=== PATIENT | male | born 1930 | race Caucasian/White ===

== ENCOUNTER 2018-11-15 07:12 | Inpatient (IN) | payer MEDICARE, OTHER ==
[2018-11-15] MEDS: ALBUTEROL 0.083% (NEB) 2.5 MG/3 ML AMP HHN (07:41)
[2018-11-15 07:51] LABS: ADD MAN DIFF? NO
[2018-11-15 07:55] LABS: BASOPHIL # 0.1 10^3/ul (0.0-0.1); BASOPHILS % 0.6 % (0.0-2.0); EOSINOPHILS % 0.3 % (0.0-7.0); HEMOGLOBIN 12.9 g/dl (14.0-18.0); LYMPHOCYTES # 1.1 10^3/ul (0.8-2.9); LYMPHOCYTES % 9.3 % (15.0-51.0); MEAN CORPUSCULAR HEMOGLOBIN 29.9 pg (29.0-33.0); MEAN CORPUSCULAR HGB CONC 32.3 g/dl (32.0-37.0); MEAN CORPUSCULAR VOLUME 92.6 fl (82.0-101.0); MEAN PLATELET VOLUME 11.2 fl (7.4-10.4); MONOCYTE # 0.6 10^3/ul (0.3-0.9); MONOCYTES % 5.2 % (0.0-11.0); NEUTROPHIL # 10.3 10^3/ul (1.6-7.5); NEUTROPHILS % 83.9 % (39.0-77.0); PLATELET COUNT 222 10^3/UL (140-415); RED BLOOD COUNT 4.32 10^6/ul (4.70-6.10); RED CELL DISTRIBUTION WIDTH 13.4 % (11.5-14.5)
[2018-11-15 07:55] LABS: WHITE BLOOD COUNT 12.3 10^3/ul (4.8-10.8)
[2018-11-15 08:14] LABS: ALANINE AMINOTRANSFERASE 50 IU/L (13-69); ALBUMIN 4.6 g/dl (3.3-4.9); ALBUMIN/GLOBULIN RATIO 1.24; ALKALINE PHOSPHATASE 77 IU/L (42-121); ANION GAP 18 (5-13); ASPARTATE AMINO TRANSFERASE 62 IU/L (15-46); BILIRUBIN,INDIRECT 0.3 mg/dl (0-1.1); BILIRUBIN,TOTAL 0.3 mg/dl (0.2-1.3); BLOOD UREA NITROGEN 47 mg/dl (7-20); CALCIUM 9.5 mg/dl (8.4-10.2); CARBON DIOXIDE 23 mmol/L (21-31); CHLORIDE 102 mmol/L (97-110); CREATININE 2.11 mg/dl (0.61-1.24); GLUCOSE 191 mg/dl (70-220); POTASSIUM 4.6 mmol/L (3.5-5.1); SODIUM 143 mmol/L (135-144); TOTAL PROTEIN 8.3 g/dl (6.1-8.1)
[2018-11-15 08:22] LABS: B-TYPE NATRIURETIC PEPTIDE 6800 PG/ML (0-450)
[2018-11-15 08:28] LABS: LACTIC ACID 1.8 mmol/L (0.5-2.0)
[2018-11-15 09:03] LABS: TROPONIN-I 0.024 ng/ml (0.000-0.120)
[2018-11-15] MEDS ORDERED: ONDANSETRON 4 MG INJ IV (09:30)
[2018-11-15] MEDS ORDERED: ACETAMINOPHEN 325 MG TAB PO (09:30)
[2018-11-15] MEDS ORDERED: NACL 0.9% 3 ML SYG IV (09:30)
[2018-11-15] MEDS: FUROSEMIDE 20 MG INJ IV ×2 (09:39→13:10)
[2018-11-15] MEDS ORDERED: DEXTROSE 50% 50 ML SYRINGE IV ×2 (11:00)
[2018-11-15] MEDS ORDERED: GLUCOSE GEL 15 GRAM TUBE PO ×2 (11:00)
[2018-11-15] MEDS ORDERED: GLUCAGON 1 MG INJ IM (11:00)
[2018-11-15] MEDS ORDERED: GLUCOSE GEL 15 GRAM TUBE BUCCAL (11:00)
[2018-11-15] MEDS: INSULIN GLARGINE [LANTus] (100 UNITS/ML) SYG SC (11:59)
[2018-11-15] MEDS: INSULIN ASPART [NOVOLOG] 3 ML PEN SC ×3 (12:00→21:59)
[2018-11-15] MEDS: LOSARTAN 50 MG TAB PO (12:04)
[2018-11-15 14:00] LABS: LACTIC ACID 2.6 mmol/L (0.5-2.0)
[2018-11-15] MEDS: CEFTRIAXONE 1 GM/50 ML (PMX) 50 ML IVPB (14:15)
[2018-11-15 14:36] LABS: ADD UMIC YES; UR ASCORBIC ACID NEGATIVE (NEGATIVE); UR BACTERIA FEW /HPF (NONE SEEN); UR BILIRUBIN (Dip) NEGATIVE (NEGATIVE); UR BLOOD (Dip) 1+ mg/dL (NEGATIVE); UR CLARITY CLEAR (CLEAR); UR COLOR STRAW (YELLOW); UR GLUCOSE (Dip) NEGATIVE (NEGATIVE); UR KETONES (Dip) NEGATIVE (NEGATIVE); UR LEUKOCYTE ESTERASE (Dip) NEGATIVE Leu/ul (NEGATIVE); UR NITRITE (Dip) NEGATIVE (NEGATIVE); UR RBC 2 /HPF (0-5); UR SPECIFIC GRAVITY (Dip) 1.008 (1.003-1.030); UR TOTAL PROTEIN (Dip) 1+ mg/dl (NEGATIVE); UR UROBILINOGEN (Dip) NEGATIVE (NEGATIVE); UR WBC 0 /HPF (0-5)
[2018-11-15 14:53] LABS: SODIUM,URINE RANDOM 110 mmol/L (30-90)
[2018-11-15 14:53] LABS: CREATININE,URINE RANDOM 26.65 mg/dl (20-370)
[2018-11-15] MEDS: AZITHROMYCIN 500 MG TAB PO (15:10)
[2018-11-15] MEDS: FUROSEMIDE 40 MG INJ IV (17:15)
[2018-11-15] MEDS ORDERED: NON-FORMULARY/PATIENT OWN MED (Simvastatin* (Zocor*) 10 MG) PO (21:00)
[2018-11-15] MEDS: ATORVASTATIN 10 MG TAB PO (21:51)
[2018-11-15] MEDS: LATANOPROST 0.005% 2.5 ML OPH BOTH EYES (22:24)
[2018-11-16] MEDS: ACCU-CHEK XX (01:39)
[2018-11-16] MEDS: FUROSEMIDE 40 MG INJ IV (06:13)
[2018-11-16 07:16] LABS: ADD MAN DIFF? NO
[2018-11-16 07:24] LABS: WHITE BLOOD COUNT 12.2 10^3/ul (4.8-10.8)
[2018-11-16 07:24] LABS: BASOPHIL # 0.1 10^3/ul (0.0-0.1); BASOPHILS % 0.5 % (0.0-2.0); EOSINOPHILS # 0.1 10^3/ul (0.0-0.5); EOSINOPHILS % 0.7 % (0.0-7.0); HEMOGLOBIN 12.7 g/dl (14.0-18.0); LYMPHOCYTES # 2.1 10^3/ul (0.8-2.9); MEAN CORPUSCULAR HEMOGLOBIN 29.5 pg (29.0-33.0); MEAN CORPUSCULAR HGB CONC 32.6 g/dl (32.0-37.0); MEAN CORPUSCULAR VOLUME 90.5 fl (82.0-101.0); MEAN PLATELET VOLUME 11.2 fl (7.4-10.4); MONOCYTE # 1.1 10^3/ul (0.3-0.9); MONOCYTES % 8.6 % (0.0-11.0); NEUTROPHIL # 8.8 10^3/ul (1.6-7.5); NEUTROPHILS % 72.5 % (39.0-77.0); PLATELET COUNT 221 10^3/UL (140-415); RED BLOOD COUNT 4.31 10^6/ul (4.70-6.10); RED CELL DISTRIBUTION WIDTH 13.6 % (11.5-14.5)
[2018-11-16 07:31] LABS: HEMOGLOBIN A1C 7.1 % (0-5.9)
[2018-11-16 07:43] LABS: ALANINE AMINOTRANSFERASE 46 IU/L (13-69); ALBUMIN 4.4 g/dl (3.3-4.9); ALBUMIN/GLOBULIN RATIO 1.22; ALKALINE PHOSPHATASE 64 IU/L (42-121); ANION GAP 15 (5-13); ASPARTATE AMINO TRANSFERASE 37 IU/L (15-46); BILIRUBIN,INDIRECT 0.5 mg/dl (0-1.1); BILIRUBIN,TOTAL 0.5 mg/dl (0.2-1.3); BLOOD UREA NITROGEN 47 mg/dl (7-20); CALCIUM 9.8 mg/dl (8.4-10.2); CARBON DIOXIDE 30 mmol/L (21-31); CHLORIDE 99 mmol/L (97-110); CHOL/HDL RATIO 4.7 RATIO; CHOLESTEROL 119 mg/dl (100-200); CREATININE 1.77 mg/dl (0.61-1.24); GLUCOSE 150 mg/dl (70-220); HDL CHOLESTEROL 25 mg/dl (31-75); LDL CHOLESTEROL,CALCULATED 64 mg/dl; PHOSPHORUS 3.6 mg/dl (2.5-4.9); POTASSIUM 3.8 mmol/L (3.5-5.1); SODIUM 144 mmol/L (135-144); TRIGLYCERIDES 150 mg/dl (0-149)
[2018-11-16] MEDS: INSULIN ASPART [NOVOLOG] 3 ML PEN SC ×4 (07:47→21:00)
[2018-11-16] MEDS ORDERED: NON-FORMULARY/PATIENT OWN MED (Omega-3/Dha/Epa/Fish Oil (Fish Oil 1,000 Mg Softgel) 1 CAP) PO (09:00)
[2018-11-16] MEDS ORDERED: NON-FORMULARY/PATIENT OWN MED (Sitagliptin* (Januvia*) 100 MG) PO (09:00)
[2018-11-16] MEDS: FINASTERIDE 5 MG TAB PO (09:14)
[2018-11-16] MEDS: FISH OIL 1,000 MG CAP PO (09:14)
[2018-11-16] MEDS: METOPROLOL (XL) 50 MG TAB PO (09:16)
[2018-11-16] MEDS: LINAGLIPTIN 5 MG TABLET PO (09:16)
[2018-11-16] MEDS: LOSARTAN 50 MG TAB PO (09:17)
[2018-11-16] MEDS: AZITHROMYCIN 500 MG TAB PO (09:46)
[2018-11-16] MEDS: MULTIVITAMINS/MINERALS TAB PO (09:46)
[2018-11-16] MEDS: DIPYRIDAMOLE/ASPIRIN (SR) CAP PO (09:46)
[2018-11-16] MEDS: GUAIFENESIN/DM 5ML CUP PO ×2 (09:48→19:02)
[2018-11-16] MEDS: INSULIN GLARGINE [LANTus] (100 UNITS/ML) SYG SC ×3 (09:54→19:09)
[2018-11-16 14:09] LABS: CREATININE, RANDOM URINE 29 mg/dL (20-320); MICROALBUMIN 18.3 mg/dL; MICROALBUMIN/CREATININE RATIO 631 (<30)
[2018-11-16] MEDS: CEFTRIAXONE 1 GM/50 ML (PMX) 50 ML IVPB (16:18)
[2018-11-16] MEDS: LATANOPROST 0.005% 2.5 ML OPH BOTH EYES (21:26)
[2018-11-16] MEDS: ATORVASTATIN 10 MG TAB PO (21:26)
[2018-11-17] MEDS: ACCU-CHEK XX (02:00)
[2018-11-17] MEDS: INSULIN ASPART [NOVOLOG] 3 ML PEN SC ×4 (07:55→21:05)
[2018-11-17] MEDS: MULTIVITAMINS/MINERALS TAB PO (08:23)
[2018-11-17] MEDS: AZITHROMYCIN 500 MG TAB PO (08:23)
[2018-11-17] MEDS: FISH OIL 1,000 MG CAP PO (08:23)
[2018-11-17] MEDS: LINAGLIPTIN 5 MG TABLET PO (08:24)
[2018-11-17] MEDS: METOPROLOL (XL) 50 MG TAB PO (08:24)
[2018-11-17] MEDS: FINASTERIDE 5 MG TAB PO (08:24)
[2018-11-17] MEDS: LOSARTAN 50 MG TAB PO (08:24)
[2018-11-17] MEDS: DIPYRIDAMOLE/ASPIRIN (SR) CAP PO (08:25)
[2018-11-17 08:59] LABS: ADD MAN DIFF? NO
[2018-11-17 09:01] LABS: WHITE BLOOD COUNT 12.6 10^3/ul (4.8-10.8)
[2018-11-17 09:01] LABS: BASOPHIL # 0.1 10^3/ul (0.0-0.1); BASOPHILS % 0.6 % (0.0-2.0); EOSINOPHILS # 0.2 10^3/ul (0.0-0.5); EOSINOPHILS % 1.5 % (0.0-7.0); HEMATOCRIT 39.5 % (42.0-52.0); HEMOGLOBIN 12.7 g/dl (14.0-18.0); LYMPHOCYTES # 2.6 10^3/ul (0.8-2.9); MEAN CORPUSCULAR HEMOGLOBIN 29.3 pg (29.0-33.0); MEAN CORPUSCULAR HGB CONC 32.2 g/dl (32.0-37.0); MEAN CORPUSCULAR VOLUME 91.2 fl (82.0-101.0); MEAN PLATELET VOLUME 10.9 fl (7.4-10.4); MONOCYTE # 1.1 10^3/ul (0.3-0.9); MONOCYTES % 8.7 % (0.0-11.0); NEUTROPHIL # 8.5 10^3/ul (1.6-7.5); NEUTROPHILS % 67.2 % (39.0-77.0); PLATELET COUNT 234 10^3/UL (140-415); RED BLOOD COUNT 4.33 10^6/ul (4.70-6.10); RED CELL DISTRIBUTION WIDTH 13.5 % (11.5-14.5)
[2018-11-17] MEDS: INSULIN GLARGINE [LANTus] (100 UNITS/ML) SYG SC (09:25)
[2018-11-17 09:35] LABS: ANION GAP 15 (5-13); BLOOD UREA NITROGEN 40 mg/dl (7-20); CALCIUM 9.7 mg/dl (8.4-10.2); CARBON DIOXIDE 29 mmol/L (21-31); CHLORIDE 99 mmol/L (97-110); CREATININE 1.63 mg/dl (0.61-1.24); GLUCOSE 111 mg/dl (70-220); PHOSPHORUS 3.9 mg/dl (2.5-4.9); POTASSIUM 3.4 mmol/L (3.5-5.1); SODIUM 143 mmol/L (135-144)
[2018-11-17] MEDS: CEFTRIAXONE 1 GM/50 ML (PMX) 50 ML IVPB (13:19)
[2018-11-17] MEDS: FUROSEMIDE 20 MG TAB PO (13:20)
[2018-11-17] MEDS: POTASSIUM CHLORIDE 20 MEQ POWDER FOR ORAL SOLN PO (13:27)
[2018-11-17] MEDS: ATORVASTATIN 10 MG TAB PO (20:16)
[2018-11-17] MEDS: GUAIFENESIN/DM 5ML CUP PO (20:16)
[2018-11-17] MEDS: LATANOPROST 0.005% 2.5 ML OPH BOTH EYES (21:15)
[2018-11-18] MEDS: ACCU-CHEK XX (02:00)
[2018-11-18 07:01] LABS: ANION GAP 12 (5-13); BLOOD UREA NITROGEN 39 mg/dl (7-20); CALCIUM 9.3 mg/dl (8.4-10.2); CARBON DIOXIDE 26 mmol/L (21-31); CHLORIDE 100 mmol/L (97-110); CREATININE 1.48 mg/dl (0.61-1.24); GLUCOSE 133 mg/dl (70-220); SODIUM 138 mmol/L (135-144)
[2018-11-18] MEDS: INSULIN ASPART [NOVOLOG] 3 ML PEN SC ×2 (07:55→11:50)
[2018-11-18] MEDS: INSULIN GLARGINE [LANTus] (100 UNITS/ML) SYG SC (08:14)
[2018-11-18] MEDS: MULTIVITAMINS/MINERALS TAB PO (08:21)
[2018-11-18] MEDS: FISH OIL 1,000 MG CAP PO (08:21)
[2018-11-18] MEDS: FINASTERIDE 5 MG TAB PO (08:21)
[2018-11-18] MEDS: LINAGLIPTIN 5 MG TABLET PO (08:22)
[2018-11-18] MEDS: AZITHROMYCIN 500 MG TAB PO (08:22)
[2018-11-18] MEDS: METOPROLOL (XL) 50 MG TAB PO (08:23)
[2018-11-18] MEDS: LOSARTAN 50 MG TAB PO (08:23)
[2018-11-18] MEDS: DIPYRIDAMOLE/ASPIRIN (SR) CAP PO (08:24)
[2018-11-18] MEDS: FUROSEMIDE 20 MG TAB PO (08:24)
[2018-11-18] MEDS ORDERED: TAMSULOSIN (SR) 0.4 MG CAP PO (21:00)
[2018-11-18] MEDS ORDERED: FISH OIL 1,000 MG CAP PO (21:00)
== END 2018-11-18 13:49 | disposition home or self-care (01) | DRG 291 ==
LOC: E/R 07:12 → TEL 09:13
DX: I13.0 Hypertensive heart and chronic kidney disease with heart failure and stage 1 through stage 4 chronic kidney disease, or unspecified chronic kidney disease (principal); I50.33 Acute on chronic diastolic (congestive) heart failure; R65.10 Systemic inflammatory response syndrome (SIRS) of non-infectious origin without acute organ dysfunction; N17.9 Acute kidney failure, unspecified; J20.9 Acute bronchitis, unspecified; N18.3 Chronic kidney disease, stage 3 (moderate); E11.22 Type 2 diabetes mellitus with diabetic chronic kidney disease; I48.2 Chronic atrial fibrillation; E78.5 Hyperlipidemia, unspecified; D63.1 Anemia in chronic kidney disease; I27.20 Pulmonary hypertension, unspecified; Z79.84 Long term (current) use of oral hypoglycemic drugs; Z79.82 Long term (current) use of aspirin; Z86.73 Personal history of transient ischemic attack (TIA), and cerebral infarction without residual deficits; E78.2 Mixed hyperlipidemia; H40.9 Unspecified glaucoma
CPT/HCPCS: 36415; 71045; 76775; 80048; 80053; 80061; 81001; 81003; 82043; 82962; 83036; 83605; 83735; 83880; 84100; 84155; 84300; 84443; 84484; 85025; 87040; 87400; 93005; 93306; 93970; 94664; 99285-25